=== PATIENT | female | born 1995 | race African-American/Black ===

== ENCOUNTER 2019-04-28 00:16 | Emergency (ER) | payer OTHER ==
[~2019-04-28] VITALS: Ht 165.1 cm; Wt 110.2 kg
[2019-04-28] MEDS ORDERED: ASPIR 8181 MG PO (00:25)
[2019-04-28] MEDS ORDERED: PRENATAL PO (00:25)
[2019-04-28] MEDS ORDERED: AMOXICILLIN 50500 M1 PO (00:43)
[2019-04-28] MEDS ORDERED: TYLENOL325 MG PO (00:43)
[2019-04-28 00:52] VITALS: BP 130/78
== END 2019-04-28 01:07 | disposition home or self-care (01) ==
LOC: ER 00:16
DX: S02.5XXA Fracture of tooth (traumatic), initial encounter for closed fracture (principal); K02.9 Dental caries, unspecified; X58.XXXA Exposure to other specified factors, initial encounter; Y92.89 Other specified places as the place of occurrence of the external cause; Y93.89 Activity, other specified; Y99.8 Other external cause status